=== PATIENT | female | born 1975 | race Caucasian/White ===

== ENCOUNTER 2017-05-19 20:56 | Emergency (ER) | payer OTHER ==
[2017-05-19] MEDS ORDERED: CLINDAMYCIN 150 MG CAP PO ONE (21:32)
--- NOTE | 2017-05-19 21:32 | Emergency Department Record ---
History of Present Illness - General Chief Complaint: Laceration(s) Stated Complaint: LACERATION ON FINGER OF LEFT HAND Time Seen by Provider: 05/19/17 21:30 Source: Patient Mode of Arrival: Ambulatory Limitations: No limitations - History of Present Illness Initial Commments: 41 yo female presents to ED with a CC of left ring finger laceration while working outdoors tonight. Patient reports that she lacerated her finger using hedge trimmers. Patient reports that her bleeding has stopped, denies loss of finger flexion/extension on examination. Patient reports that her tetanus is UTD, however she is concerned about possible MRSA infection following injury. Onset/Timin -: Minutes(s) Extremity Location: Left: Hand Place: Home Context: Accidental Associated Symptoms: None - Ravi Coma Scale Eye Response: (4) Open spontaneously Motor Response: (6) Obeys commands Verbal Response: (5) Oriented Ravi Total: 15 - Related Data Hx Tetanus Toxoid Vaccination: Yes Year of Tetanus Vaccination: 2012 Patient Tetanus UTD (within 5 yrs): Yes Previous Rx's Medication Instructions Recorded Clindamycin HCl 300 mg PO Q6H #27 capsule 05/19/17 Allergies Allergy/AdvReac Type Severity Reaction Status Date / Time No Known Drug Allergies Allergy Verified 03/27/16 11:21 Travel Screening - Travel/Exposure Within Last 30 Days Have you traveled within the last 30 days?: No - Travel Symptoms Symptom Screening: None Review of Systems Constitutional: Denies: Chills, Fever, Malaise, Night sweats Eyes: Denies: Eye discharge, Eye pain ENT: Denies: Congestion, Ear pain, Epistaxis Respiratory: Denies: Cough, Dyspnea Cardiovascular: Denies: Chest pain, Dyspnea on exertion Endocrine: Denies: Fatigue, Heat or cold intolerance Gastrointestinal: Denies: Abdominal pain, Nausea, Vomiting Genitourinary: Denies: Incontinence, Retention Musculoskeletal: Denies: Arthralgia, Back pain, Gout, Joint swelling Skin: Reports: Other (laceration to the left ring finger). Denies: Bruising, Change in color Neurological: Denies: Abnormal gait, Confusion, Seizure Psychiatric: Denies: Anxiety Hematological/Lymphatic: Denies: Anemia, Blood Clots Past Medical History - SOCIAL HISTORY Smoking Status: Never smoker - RESPIRATORY Hx Respiratory Disorders: No - CARDIOVASCULAR Hx Cardio Disorders: No - NEURO Hx Neuro Disorders: No - GI Hx GI Disorders: No - Hx Genitourinary Disorders: No - ENDOCRINE Hx Endocrine Disorders: No - MUSCULOSKELETAL Hx Musculoskeletal Disorders: No - PSYCH Hx Psych Problems: No - HEMATOLOGY/ONCOLOGY Hx Hematology/Oncology Disorders: No Family Medical History Any Significant Family History?: No Family Hx Comment (NOT TO BE USED IN PLACE OF ITEMS BELOW): denies Physical Exam - General General Appearance: Alert, Oriented x3, Cooperative, No acute distress Limitations: No limitations - Head Head exam: Atraumatic, Normocephalic, Normal inspection Head exam detail: negative: Abrasion, Contusion, Conner's sign, General tenderness, Hematoma, Laceration - Eye Eye exam: Normal appearance. negative: Conjunctival injection, Periorbital swelling, Periorbital tenderness, Scleral icterus - ENT Ear exam: negative: Auricular hematoma, Auricular trauma Nasal Exam: negative: Active bleeding, Discharge, Dried blood, Foreign body Mouth exam: negative: Drooling, Laceration, Muffled voice, Tongue elevation - Neck Neck exam: Normal inspection. negative: Meningismus, Tenderness - Respiratory Respiratory exam: Normal lung sounds bilaterally. negative: Rales, Respiratory distress, Rhonchi, Stridor - Cardiovascular Cardiovascular Exam: Regular rate, Normal rhythm, Normal heart sounds - GI/Abdominal GI/Abdominal exam: Soft. negative: Rebound, Rigid, Tenderness - Rectal Rectal exam: Deferred - exam: Deferred - Extremities Extremities exam: Other (superficial 1.5 cm laceration to the dorsal/medial aspect of the left right finger, FROM at the PIP/DIP). negative: Calf tenderness, Pedal edema, Tenderness - Back Back exam: Denies: CVA tenderness (R), CVA tenderness (L) - Neurological Neurological exam: Alert, Normal gait, Oriented X3 - Psychiatric Psychiatric exam: Normal affect, Normal mood - Skin Skin exam: Normal color. negative: Abrasion Type of lesion: negative: abrasion Course Vital Signs 05/19/17 21:09 Temperature 98.2 F Pulse Rate [ 100 H Pulse Ox Probe] Respiratory 16 Rate Blood Pressure 104/65 [Left Arm] Pulse Ox 100 - Reevaluation(s) Reevaluation #1: 05/19/17 21:38 Procedure Note: Wound was cleaned with Hibiclens solution, no FBs identified on examination. Wound was closed with Dermabond tissue adhesive achieving both good hemostasis and cosmesis. Patient appears stable for discharge at this time. Disposition Disposition: Discharge Clinical Impression: Finger laceration Qualifiers: Encounter type: initial encounter Finger: ring finger Damage to nail status: without damage Foreign body presence: without foreign body Laterality: left Qualified Code(s): S61.215A - Laceration without foreign body of left ring finger without damage to nail, initial encounter Disposition: Home, Self-Care Condition: (2) Stable Instructions: Skin Adhesive Care (ED) Additional Instructions: Return to ED if your symptoms worsen or if you have any concerns. Clindamycin as directed. Follow-up with your family doctor in 3-5 days as directed. Prescriptions: Clindamycin HCl 300 mg PO Q6H #27 capsule Forms: Patient Portal Access Time of Disposition: 21:32 Quality - Quality Measures Quality Measures: N/A - Blood Pressure Screening Blood Pressure Classification: Normal BP Reading Systolic Measurement: 104 Diastolic Measurement: 65 Screening for High Blood Pressure: < Normal BP, F/U Not Required > [G8783] Normal BP Follow-up Interventions: No follow-up required
== END 2017-05-19 21:47 | disposition home or self-care (01) ==
LOC: ER 20:56
DX: S61.215A Laceration without foreign body of left ring finger without damage to nail, initial encounter (principal); W27.8XXA Contact with other nonpowered hand tool, initial encounter; Y93.H2 Activity, gardening and landscaping; Y92.007 Garden or yard of unspecified non-institutional (private) residence as the place of occurrence of the external cause
CPT/HCPCS: 99282

== ENCOUNTER 2017-06-12 23:42 | Emergency (ER) | payer OTHER ==
--- NOTE | 2017-06-13 00:06 | Emergency Department Record ---
History of Present Illness - General Chief complaint: Dental Stated complaint: ABSCESS TOOTH Time Seen by Provider: 06/12/17 23:50 Source: Patient - History of Present Illness Initial comments: The patient states she went to her dentist last Monday06-07-17 in preparation for a crown in her left upper tooth. She had multiple injections of novocaine which needed to be repeated--8 times as she recalls. From the numerous shots she began having swelling in her gums and left cheek which has continued to worsen. She saw the dentist again earlier today and he drained an abscess on the outside of the tooth and placed her on amoxicillin 500 mg along with norco. She has had 3 antibiotic pills and taken norco pills twice with some relief of the pain. But now she states the swelling feels like it is around her eyes, and up into her nose, her left ear and down beneath her jaw on the left. MD complaint: Tooth pain, Other (facial swelling) - Related Data Home Medications Medication Instructions Recorded Confirmed Last Taken Amoxicillin [Amoxicillin] 500 mg PO Q8HR 06/12/17 06/12/17 06/12/17 23:00 Hydrocodone/Acetaminophen 1 tab PO Q6HR 06/12/17 06/12/17 06/12/17 18:00 [Hydrocodone/Acetaminophen 2 5mg/325mg] Allergies Allergy/AdvReac Type Severity Reaction Status Date / Time No Known Drug Allergies Allergy Verified 06/12/17 23:47 Review of Systems Reviewed: No additional complaints except as noted below Constitutional: Reports: As per HPI. Denies: Chills, Fever, Malaise, Night sweats, Weakness, Weight change Eyes: Reports: As per HPI. Denies: Eye discharge, Eye pain, Photophobia, Vision change ENT: Reports: As per HPI. Denies: Congestion, Dental pain, Ear pain, Epistaxis , Hearing loss, Throat pain Respiratory: Reports: As per HPI. Denies: Cough, Dyspnea, Hemoptysis, Stridor, Wheezes Cardiovascular: Reports: As per HPI. Denies: Arrhythmia, Chest pain, Dyspnea on exertion, Edema, Murmurs, Orthopnea, Palpitations, Paroxysmal nocturnal dyspnea, Rheumatic Fever, Syncope Endocrine: Reports: As per HPI. Denies: Fatigue, Heat or cold intolerance, Polydipsia, Polyuria Gastrointestinal: Reports: As per HPI. Denies: Abdominal pain, Constipation, Diarrhea, Hematemesis, Hematochezia, Melena, Nausea, Vomiting Genitourinary: Reports: As per HPI. Denies: Abnormal menses, Discharge, Dyspareunia, Dysuria, Frequency, Hematuria, Incontinence, Retention, Urgency Musculoskeletal: Reports: As per HPI. Denies: Arthralgia, Back pain, Gout, Joint swelling, Myalgia, Neck pain Skin: Reports: As per HPI. Denies: Bruising, Change in color, Change in hair/ nails, Lesions, Pruritus, Rash Neurological: Reports: As per HPI. Denies: Abnormal gait, Confusion, Headache, Numbness, Paresthesias, Seizure, Tingling, Tremors, Vertigo, Weakness Psychiatric: Reports: As per HPI. Denies: Anxiety, Auditory hallucinations, Depression, Homicidal thoughts, Suicidal thoughts, Visual hallucinations Hematological/Lymphatic: Reports: As per HPI. Denies: Anemia, Blood Clots, Easy bleeding, Easy bruising, Swollen glands Past Medical History - SOCIAL HISTORY Smoking Status: Never smoker - RESPIRATORY Hx Respiratory Disorders: No - CARDIOVASCULAR Hx Cardio Disorders: No - NEURO Hx Neuro Disorders: No - GI Hx GI Disorders: No - Hx Genitourinary Disorders: No - ENDOCRINE Hx Endocrine Disorders: No - MUSCULOSKELETAL Hx Musculoskeletal Disorders: No - PSYCH Hx Psych Problems: No - HEMATOLOGY/ONCOLOGY Hx Hematology/Oncology Disorders: No Family Medical History Any Significant Family History?: No Family Hx Comment (NOT TO BE USED IN PLACE OF ITEMS BELOW): denies Physical Exam - General General Appearance: Alert, Oriented x3, Cooperative, Moderate distress - Head Head exam: Other (left sided facial swelling and tenderness-- see picture) Image of Face/Head: 1 - facial swelling and warmth including nares, left orbit and into forehead and down to below jaw line at angle of jaw. - Eye Eye exam: Normal appearance, PERRL, EOMI Pupils: Normal accommodation - ENT ENT exam: Normal exam, Mucous membranes moist, Normal external ear exam, Normal orophraynx, TM's normal bilaterally Ear exam: Normal external inspection. negative: External canal tenderness Nasal Exam: Normal inspection. negative: Discharge, Sinus tenderness Mouth exam: Normal external inspection, Tongue normal, Trismus, Other (open draining abscess site bucca mucosa of upper molars) Teeth exam: Normal inspection, Dental tenderness # (#14, #15 lateral gum line swollen with site of drained opened abscess). negative: Dental caries Throat exam: Normal inspection. negative: Tonsillar erythema, Tonsillomegaly, Tonsillar exudate - Neck Neck exam: Normal inspection, Full ROM, Lymphadenopathy (submandibular LN at angle of left jaw.). negative: Tenderness - Respiratory Respiratory exam: Normal lung sounds bilaterally. negative: Respiratory distress - Cardiovascular Cardiovascular Exam: Regular rate, Normal rhythm, Normal heart sounds - GI/Abdominal GI/Abdominal exam: Soft, Normal bowel sounds. negative: Tenderness - Rectal Rectal exam: Deferred - exam: Deferred - Extremities Extremities exam: Normal inspection, Full ROM, Normal capillary refill. negative: Tenderness - Back Back exam: Reports: Normal inspection, Full ROM. Denies: Muscle spasm, Rash noted, Tenderness - Neurological Neurological exam: Alert, CN II-XII intact, Normal gait, Oriented X3, Reflexes normal - Psychiatric Psychiatric exam: Normal affect, Normal mood - Skin Skin exam: Dry, Intact, Normal color, Warm Course Vital Signs 06/12/17 23:49 Temperature 98.4 F Pulse Rate [ 79 Pulse Ox Probe] Respiratory 20 Rate Blood Pressure 118/78 [Left Arm] Pulse Ox 98 - Reevaluation(s) Reevaluation #1: Gone to CT scan. 06/13/17 01:02 Reevaluation #2: Patient is feeling much better after dilaudid. Awaiting CT report from [facility]. Patient is now sleeping. 06/13/17 01:57 Reevaluation #3: Results discussed. Patient has improved and agrees to come back for repeat antibiotics once in 12 hours. Disc given for her to show her oral surgeon at her appointment. 06/13/17 02:26 Medical Decision Making - Management Options [facility] Management: Additional Work-up Planned (e.g. ADM/Transfer/OP Study) (Follow up with Oral Surgery as previously arranged.) - Data Complexity MDM Data: Labs Ordered and/or Reviewed, X-Ray Ordered and/or Reviewed (Contrast maxillofacial CT: Orbits and globes intact bilaterally. Moderate periapical lucency surrounding the #14 tooth on the upper left, bordering the maxillary sinus. There is moderate mucosal thickening of the left maxilary sinus. Trace mucosal thickening of the right maxillary sinus. Moderate periapical lucency surrounding the #14 tooth on the upper left, bordering the maxillary sinus. Subtle communication between the periapical lucency and the adjacent maxillary sinus is possible at this level with early evolving infection not excluded. No evidence of overt inflammatory change or abscess at the current time. Per [facility].) - Lab Data Result diagrams: 06/13/17 00:16 06/13/17 00:16 Disposition Disposition: Discharge Clinical Impression: Left maxillary sinusitis, Periapical abscess with facial involvement, Pain, dental Disposition: Home, Self-Care Condition: (2) Stable Instructions: Dental Abscess (ED) Additional Instructions: Continue meds as before taking Amoxicillin when you get up in the morning. [place] as directed as needed for pain at home. Return here for repeat IV antibiotics in 12 hours. Approximately 12 noon. Follow up with oral surgeon as previously instructed through your dentist. Full liquids to soft diet as tolerates. Push fluids. to drive you home to bed. Forms: Patient Portal Access Quality - Quality Measures Quality Measures: N/A - Blood Pressure Screening Does Patient Have Any of the Following: No Blood Pressure Classification: Normal BP Reading Systolic Measurement: 118 Diastolic Measurement: 78 Screening for High Blood Pressure: < Normal BP, F/U Not Required > [G8783]
[2017-06-13] MEDS ORDERED: 0.9 % SODIUM CHLORIDE 1,000 ML BAG IV ONE (00:08)
[2017-06-13] MEDS ORDERED: CEFOTETAN DISODIUM IVPB SCH (00:15)
[2017-06-13] MEDS ORDERED: SODIUM CHLORIDE 0.9% IVPB SCH (00:15)
[2017-06-13 00:23] LABS: BASO % 0.4 % (0-6); EOS % 3.6 % (0-6); GRAN % 52.6 % (47-80); HEMATOCRIT 39.6 % (35.0-47.0); LYMPH % 33.1 % (16-45); MEAN CELL VOLUME 84.8 fl (81-97); MEAN CORPUSCULAR HEMOGLOBIN 27.8 pg (27-33); MEAN CORPUSCULAR HGB CONC 32.8 g/dl (32-36); MEAN PLATELET VOLUME 11.1 fl (7.4-10.4); MONO % 10.3 % (0-9); PLATELET COUNT 179 K/uL (130-400); RED BLOOD COUNT 4.67 M/uL (3.80-5.40); RED CELL DISTRIBUTION WIDTH 12.4 % (11.5-14.5); WHITE BLOOD COUNT W/O DIFF 7.2 K/uL (4.2-12.2)
[2017-06-13] MEDS ORDERED: HYDROMORPHONE HCL 1MG/ML **SYRINGE IVP ONE ×2 (00:26→02:34)
[2017-06-13] MEDS ORDERED: ONDANSETRON HCL IV 4 MG/2 ML VIAL IVP ONE ×2 (00:26→02:34)
[2017-06-13] MEDS ORDERED: SODIUM CHLORIDE 0.9% IVPB STA (00:27)
[2017-06-13] MEDS ORDERED: CEFOTETAN DISODIUM IVPB STA (00:27)
[2017-06-13 00:34] LABS: ANION GAP 8.7 (7-16); BLOOD UREA NITROGEN 9 mg/dL (7-17); CARBON DIOXIDE 26.3 mmol/L (22-30); CREATININE 0.6 mg/dL (0.52-1.04); EST GLOMERULAR FILTRATION RATE > 60 ml/min; GLUCOSE,RANDOM 86 mg/dL (70-110)
[2017-06-13] MEDS ORDERED: HYDROCODONE/APAP 5/325MG TABLET PO ONE (02:44)
--- NOTE | 2017-06-14 08:46 | CT SCAN REPORT ---
EXAM: MAXILLOFACIAL CT WITH IV CONTRAST HISTORY: DENTAL PROCEDURE SIX DAYS AGO, PAIN AND SWELLING LEFT SIDE OF FACE EFT ORBITAL REGION. TECHNIQUE: Contiguous axial images of the maxillofacial region were obtained after the uneventful intravenous administration of 100 ml of Omnipaque 300. Comparison: Head CT 11/05/11. FINDINGS: Periapical abscess involving tooth number 14. Moderate to extensive mucosal thickening in the inferior left maxillary sinus. Mild mucosal thickening right maxillary sinus. The orbits are intact with no preseptal or postseptal inflammatory fat stranding. Lety bullosa of the middle turbinates. Moderate left lateral nasal septal deviation of the mid septum. Occlusion of the left ostiomeatal complex due to mucosal thickening. Mild subcutaneous fat stranding superficial to the left buccinator muscle and extending into the left submandibular region consistent with cellulitis. No discreet abscess. IMPRESSION: 1. LEFT FACIAL CELLULITIS ABOVE. NO SOFT TISSUE ABSCESS IDENTIFIED. 2. MODERATE TO EXTENSIVE MUCOSAL THICKENING IN THE LEFT MAXILLARY SINUS CONSISTENT WITH CHRONIC SINUSITIS. OCCLUSION OF THE LEFT MAXILLARY SINUS DRAINAGE PATHWAY. 3. MILD MUCOSAL THICKENING RIGHT MAXILLARY SINUS. 4. PERIAPICAL ABSCESS INVOLVING TOOTH NUMBER 14. JOB NUMBER: [id number] [facility]
== END 2017-06-13 03:01 | disposition home or self-care (01) ==
LOC: ER 23:42
DX: K04.7 Periapical abscess without sinus (principal); J01.00 Acute maxillary sinusitis, unspecified
CPT/HCPCS: 99284 ×2; 96376; 96365; 96375; 85025; 80048; 70487; Q9967; J2405; J1170

== ENCOUNTER 2017-06-13 12:16 | Emergency (ER) | payer OTHER ==
--- NOTE | 2017-06-13 12:23 | Emergency Department Record ---
History of Present Illness - General Chief Complaint: Recheck - Other Stated Complaint: IV ANTIBIOTICS Time Seen by Provider: 06/13/17 12:17 Source: Patient Mode of arrival: Ambulatory Limitations: No limitations - History of Present Illness Initial Comments: 41 yo female presents for a recheck and repeat antibiotics. She was recently treated by her dentist for crown preparation and developed an infections. She was treated with oral antibiotics. She was seen ED last night and had IV antibiotics with a CT of the face as well. She reports that she is greatly improved. She received 2mg of Cefotetan last night. Her pain, redness and swelling are markedly improved. No neck pain. She saw the digital librarian yesterday and has an oral surgery referral in progress. MD Complaint: Needs IV antibiotics, Wound re-check -: Days(s) Initial Visit For: Abscess Returns Today for: Needs IV antibiotics Symptoms Since Prior Visit: No new symptoms Associated Symptoms: None - Related Data Home Medications Medication Instructions Recorded Confirmed Last Taken Amoxicillin [Amoxicillin] 500 mg PO Q8HR 06/12/17 06/12/17 06/12/17 23:00 Hydrocodone/Acetaminophen 1 tab PO Q6HR 06/12/17 06/12/17 06/12/17 18:00 [Hydrocodone/Acetaminophen 2 5mg/325mg] Allergies Allergy/AdvReac Type Severity Reaction Status Date / Time No Known Drug Allergies Allergy Verified 06/13/17 12:25 Review of Systems Constitutional: Denies: Chills, Fever, Malaise Eyes: Denies: Eye discharge, Eye pain, Photophobia, Vision change ENT: Reports: Dental pain. Denies: Congestion, Ear pain, Epistaxis, Throat pain Respiratory: Denies: Cough, Dyspnea Cardiovascular: Denies: Chest pain, Syncope Endocrine: Denies: Fatigue Gastrointestinal: Denies: Abdominal pain, Diarrhea, Nausea, Vomiting Genitourinary: Denies: Dysuria, Urgency Musculoskeletal: Denies: Arthralgia, Back pain, Joint swelling, Myalgia Skin: Denies: Bruising, Change in color, Rash Neurological: Denies: Headache, Numbness, Weakness Psychiatric: Denies: Anxiety Hematological/Lymphatic: Denies: Blood Clots, Easy bleeding, Easy bruising, Swollen glands Past Medical History - SOCIAL HISTORY Smoking Status: Never smoker - RESPIRATORY Hx Respiratory Disorders: No - CARDIOVASCULAR Hx Cardio Disorders: No - NEURO Hx Neuro Disorders: No - GI Hx GI Disorders: No - Hx Genitourinary Disorders: No - ENDOCRINE Hx Endocrine Disorders: No - MUSCULOSKELETAL Hx Musculoskeletal Disorders: No - PSYCH Hx Psych Problems: No - HEMATOLOGY/ONCOLOGY Hx Hematology/Oncology Disorders: No Family Medical History Family Hx Comment (NOT TO BE USED IN PLACE OF ITEMS BELOW): denies Physical Exam - General General Appearance: Alert, Oriented x3, Cooperative, No acute distress Limitations: No limitations - Head Head exam: Normal inspection Image of Face/Head: 1 - very mild swelling, no abnormal warmth, minimally tender. soft, oral cavity is clear of any swelling, pus or erythema. - Eye Eye exam: Normal appearance, PERRL. negative: Conjunctival injection, Periorbital swelling, Periorbital tenderness, Scleral icterus - ENT ENT exam: negative: Normal exam Ear exam: Normal external inspection Nasal Exam: Normal inspection Mouth exam: Normal external inspection Teeth exam: Dental tenderness # (14). negative: Fractured tooth #, Gingival enlargement Throat exam: Normal inspection - Neck Neck exam: Normal inspection, Full ROM. negative: Lymphadenopathy - Respiratory Respiratory exam: Normal lung sounds bilaterally. negative: Respiratory distress - Cardiovascular Cardiovascular Exam: Regular rate, Normal rhythm, Normal heart sounds - Rectal Rectal exam: Deferred - exam: Deferred - Extremities Extremities exam: Normal inspection - Neurological Neurological exam: Alert, CN II-XII intact, Normal gait, Oriented X3. negative : Altered - Psychiatric Psychiatric exam: Normal affect, Normal mood - Skin Skin exam: Dry, Intact, Normal color, Warm Course - Reevaluation(s) Reevaluation #1: The EMR was reviewed from the prior visit IV antibiotics were ordered The patient is greatly improved from yesterday She is to return as needed for a recheck given her improvement She will continue her Amoxicillin and follow up with her oral surgery referral 06/13/17 12:36 Disposition Disposition: Discharge Clinical Impression: Periapical abscess with facial involvement, Left maxillary sinusitis Disposition: Home, Self-Care Condition: (1) Good Instructions: Dental Abscess (ED) Additional Instructions: Return if you have fever, redness, return of pain or swelling Follow up with your dentist and oral surgeon as scheduled Continue the Amoxicillin Forms: Patient Portal Access Time of Disposition: 12:38 Quality - Quality Measures Quality Measures: N/A - Blood Pressure Screening Does Patient Have Any of the Following: No Blood Pressure Classification: Normal BP Reading Systolic Measurement: 93 Diastolic Measurement: 55 Screening for High Blood Pressure: < Normal BP, F/U Not Required > [G8783]
[2017-06-13] MEDS ORDERED: SODIUM CHLORIDE 0.9% IVPB ONE (12:30)
[2017-06-13] MEDS ORDERED: SODIUM CHLORIDE 0.9% IVPB SCH (12:30)
[2017-06-13] MEDS ORDERED: CEFOTETAN DISODIUM IVPB SCH (12:30)
[2017-06-13] MEDS ORDERED: CEFOTETAN DISODIUM IVPB ONE (12:30)
[2017-06-13] MEDS ORDERED: 0.9 % SODIUM CHLORIDE 1,000 ML BAG IV ONE (13:20)
== END 2017-06-13 14:38 | disposition home or self-care (01) ==
LOC: ER 12:16
DX: J01.00 Acute maxillary sinusitis, unspecified (principal)
CPT/HCPCS: 96374; 99284; J7030

== ENCOUNTER 2018-05-28 19:37 | Emergency (ER) | payer OTHER ==
--- NOTE | 2018-05-28 19:55 | Emergency Department Record ---
History of Present Illness - General Chief Complaint: Headache Migraine Stated Complaint: LIGHT HEADED,FACE NUMBNESS,HEADACHE Time Seen by Provider: 05/28/18 19:40 Source: Patient Mode of Arrival: Ambulatory Limitations: No limitations - History of Present Illness Initial Comments: 42 yo female presents to ED for evaluation of headache and facial numbness that began 5 days ago. Patient reports similar symptoms 9 months ago that the patient reports was the result of prolonged antibiotics for a dental infection. Patient reports undergoing an MRI of the brain at that time which was negative as well. Patient reports seeing her PCP this morning for her symptoms , was given solumedrol injection for her symptoms as steroids improved her symptoms in August as well. Patient reports numbness to the RIGHT face, LEFT forearm, and RIGHT calf. MD Complaint: Headache Onset/Timin -: Days(s) Onset Description: Gradual Location: Occipital Severity: Moderate Severity scale (1-10): 5 Quality: Aching, Throbbing Consistency: Constant Improves With: Nothing Worsens With: None Treatments Prior to Arrival: Other (Steroid) - Related Data Home Medications Medication Instructions Recorded Confirmed Last Taken No Home Med [NO HOME MEDS] 05/28/18 05/28/18 Unknown Allergies Allergy/AdvReac Type Severity Reaction Status Date / Time No Known Drug Allergies Allergy Verified 06/13/17 12:25 Review of Systems Constitutional: Denies: Chills, Fever, Malaise, Night sweats Eyes: Denies: Eye discharge, Eye pain ENT: Denies: Congestion, Ear pain Respiratory: Denies: Cough, Dyspnea Cardiovascular: Denies: Chest pain, Dyspnea on exertion Endocrine: Denies: Fatigue, Heat or cold intolerance Gastrointestinal: Reports: Nausea. Denies: Abdominal pain, Vomiting Genitourinary: Denies: Incontinence, Retention Musculoskeletal: Denies: Arthralgia, Back pain, Gout, Joint swelling Skin: Denies: Bruising, Change in color Neurological: Reports: Headache, Numbness. Denies: Abnormal gait, Confusion, Seizure Psychiatric: Denies: Anxiety Hematological/Lymphatic: Denies: Anemia, Blood Clots Past Medical History - SOCIAL HISTORY Smoking Status: Never smoker - RESPIRATORY Hx Respiratory Disorders: No - CARDIOVASCULAR Hx Cardio Disorders: No - NEURO Hx Neuro Disorders: No - GI Hx GI Disorders: No - Hx Genitourinary Disorders: No - ENDOCRINE Hx Endocrine Disorders: No - MUSCULOSKELETAL Hx Musculoskeletal Disorders: No - PSYCH Hx Psych Problems: No - HEMATOLOGY/ONCOLOGY Hx Hematology/Oncology Disorders: No Family Medical History Family Hx Comment (NOT TO BE USED IN PLACE OF ITEMS BELOW): denies Physical Exam - General General Appearance: Alert, Oriented x3, Cooperative, Mild distress, Anxious Limitations: No limitations - Head Head exam: Atraumatic, Normocephalic, Normal inspection Head exam detail: negative: Abrasion, Contusion, Conner's sign, General tenderness, Hematoma, Laceration - Eye Eye exam: Normal appearance. negative: Conjunctival injection, Periorbital swelling, Periorbital tenderness, Scleral icterus - ENT Ear exam: negative: Auricular hematoma, Auricular trauma Nasal Exam: negative: Active bleeding, Discharge, Dried blood, Foreign body Mouth exam: negative: Drooling, Laceration, Muffled voice, Tongue elevation - Neck Neck exam: Normal inspection. negative: Meningismus, Tenderness - Respiratory Respiratory exam: Normal lung sounds bilaterally. negative: Rales, Respiratory distress, Rhonchi, Stridor - Cardiovascular Cardiovascular Exam: Regular rate, Normal rhythm, Normal heart sounds - GI/Abdominal GI/Abdominal exam: Soft. negative: Rebound, Rigid, Tenderness - Rectal Rectal exam: Deferred - exam: Deferred - Extremities Extremities exam: Normal inspection. negative: Calf tenderness, Pedal edema, Tenderness - Back Back exam: Denies: CVA tenderness (R), CVA tenderness (L) - Neurological Neurological exam: Alert, CN II-XII intact, Normal gait, Oriented X3, Other (No strength deficits are present on examination, NIH 0. agriculture scientist II-XII are grossly intact was well.) - Psychiatric Psychiatric exam: Anxious - Skin Skin exam: Normal color. negative: Abrasion Type of lesion: negative: abrasion Course - Reevaluation(s) Reevaluation #1: 05/28/18 19:54 EKG: NSR 78 Normal axis, normal intervals No acute ST-T wave changes are present. Reevaluation #2: 05/28/18 20:38 Previous MRI Brain was received/reviewed 09/16/17: No MRI evidence for intra-cranial process Reevaluation #3: 05/28/18 20:51 Laboratory studies from earlier today as well as CRP and ESR tonight, and all labs are grossly unremarkable for an acute process. Reevaluation #4: 05/28/18 22:01 CT Brain with/without contrast: No acute process Patient was updated on all results, reports that her headache symptoms are significantly improved. Patient has no clinical signs for CVA on examination, and her evaluation re: possible temporal arteritis and aneurysm appear negative based on today's results. Recommended follow-up with her PCP for further evaluation in 3-5 days and possible repeat MRI if symptoms persist or worsen. Transfer for emergent MRI does not appear warranted based on examination. Patient verbalizes understanding of all instructions and appears stable for discharge at this time. Disposition Disposition: Discharge Clinical Impression: Paresthesias Headache Qualifiers: Headache type: unspecified Headache chronicity pattern: acute headache Intractability: not intractable Qualified Code(s): R51 - Headache Disposition: Home, Self-Care Condition: (2) Stable Instructions: Acute Headache (ED) Additional Instructions: Return to ED if your symptoms worsen or if you have any concerns. Follow-up with your family doctor in 3-5 days as directed. Forms: Patient Portal Access Time of Disposition: 22:05 Quality - Quality Measures Quality Measures: N/A - Blood Pressure Screening Does Patient Have Any of the Following: No Blood Pressure Classification: Normal BP Reading Systolic Measurement: 113 Diastolic Measurement: 79 Screening for High Blood Pressure: < Normal BP, F/U Not Required > [G8783]
[2018-05-28] MEDS ORDERED: METOCLOPRAMIDE HCL 10 MG/2 ML VIAL IVP ONE (20:06)
[2018-05-28] MEDS ORDERED: DIPHENHYDRAMINE HCL 50 MG/ML VIAL IVP ONE (20:06)
[2018-05-28] MEDS ORDERED: 0.9 % SODIUM CHLORIDE 1000ML 1,000 ML IV SCH (20:15)
--- NOTE | 2018-05-29 11:27 | CT SCAN REPORT ---
EXAM: CT OF THE BRAIN WITHOUT AND WITH INTRAVENOUS CONTRAST HISTORY: HEADACHE. RIGHT SIDED FACIAL NUMBNESS. NAUSEA. LEFT SIDED ARM NUMBNESS. TECHNIQUE: Initial noncontrast images of the brain were obtained with coronal and sagittal post processed images. This was followed by administration of intravenous contrast. The amount and type is listed in the medical record. Coronal and sagittal post processed images were also obtained of the post contrast images. Comparison: 11/05/11. Hand dominance: Unknown. FINDINGS: The initial noncontrast images display no evidence of mass, mass effect, or midline shift. The ventricles, cisterns and sulci are symmetric. The scalp displays no significant soft tissue swelling or hematoma. The calvarium is without evidence of fracture. The sinuses appear without evidence of significant sinus disease. Chronic lucencies are seen within the posterior occipital region on the bony windows slightly increased compared with the 2012 study without progressive bony destruction or periosteal chain. No evidence of calvarial fracture. The post contrast images display no evidence of abnormal contrast enhancement. No evidence of mass, mass effect, or midline shift. The basilar cisterns appear intact. The sinuses appear to enhance. IMPRESSION: NEGATIVE CT OF THE BRAIN WITH AND WITHOUT INTRAVENOUS CONTRAST. THIS STUDY DOES NOT EXCLUDE ACUTE OR OTHERWISE SUBTLE INFARCTION. GIVEN PATIENT'S SYMPTOMS CONSIDER MRI OF THE BRAIN FOR FURTHER EVALUATION. JOB NUMBER: [id number] MTDD
== END 2018-05-28 22:21 | disposition home or self-care (01) ==
LOC: ER 19:37
DX: R51 Headache (principal); R20.0 Anesthesia of skin; R11.0 Nausea; R42 Dizziness and giddiness
CPT/HCPCS: 99284 ×2; 96374; 96375; 85651; 86140; 70470; 93005; 93010; Q9967; J1200; J2765; J7030